=== PATIENT | male | born 1995 | race African-American/Black ===

== ENCOUNTER 2023-01-11 00:31 | Emergency (ER) | payer MEDICAID, OTHER ==
[~2023-01-11] VITALS: Ht 190.5 cm; Wt 100.0 kg
[2023-01-11 00:37] VITALS: TEMP 98.7; O2SAT 100
[2023-01-11] MEDS ORDERED: KETOROLAC 30MG/ML VIAL IM ONE (01:00)
[2023-01-11] MEDS: KETOROLAC 60MG/2ML VIAL IM NR ×3 (01:36→01:39)
[2023-01-11 01:39] VITALS: BP 132/82; PULSE 64; RESP 18
[2023-01-11] MEDS ORDERED: IBUP-2029 MT (02:04)
== END 2023-01-11 02:26 | disposition home or self-care (01) ==
LOC: ER 00:31
DX: J02.9 Acute pharyngitis, unspecified (principal)
CPT/HCPCS: 87430; 87070; 96372; 99283; J1885; Z7610